=== PATIENT | female | born 2000 | race Caucasian/White ===

== ENCOUNTER 2023-06-04 11:56 | Outpatient (OUT) | payer OTHER, SELFPAY ==
[2023-06-04 12:58] LABS: Free T4 1.25 ng/dL (0.76-1.46)
[2023-06-04 13:02] LABS: Thyroid Stimulating Hormone 2.634 uIU/mL (0.358-3.740)
== END 2023-06-04 11:57 | disposition home or self-care (01) ==
LOC: LAB 11:59
PROVIDERS: PCP Family Medicine; Visit Provider Family Medicine
DX: E03.9 Hypothyroidism, unspecified (principal)
CPT/HCPCS: 36415; 84439; 84443

== ENCOUNTER 2024-05-23 10:28 | Outpatient (OUT) | payer OTHER, SELFPAY ==
[2024-05-23 11:58] LABS: Thyroid Stimulating Hormone 2.896 uIU/mL (0.358-3.740)
== END 2024-05-23 10:29 | disposition home or self-care (01) ==
LOC: LAB 10:29
PROVIDERS: PCP Family Medicine; Visit Provider Family Medicine
DX: E03.9 Hypothyroidism, unspecified (principal)
CPT/HCPCS: 36415; 84439; 84443

== ENCOUNTER 2025-05-29 09:04 | Outpatient (OUT) | payer OTHER, SELFPAY ==
--- OUTSIDE RECORDS SUMMARY | 2025-05-29 09:19 | XMS_ITS | CCD ---
Author Organization [facility] Care Team Providers Care Academic Success Coordinator Name Role Phone DR ELI RIGGINS Attending Unavailable RAHUL, DR ELI Yang Consulting Unavailable DR ELI RIGGINS Primary Care Unavailable DR ELI RIGGINS Admitting Unavailable Eli Riggins ELI RIGGINS Primary Care Unavailable SARANYA ALVARENGA Attending Unavailable SARANYA ALVARENGA Referring Unavailable SARANYA ALVARENGA MD, Marcia E Primary Care Provider Eli Riggins MD Attending Provider Allergies Allergy Classification Reported Allergen(s) Allergy Type Date of Onset Reaction(s) Facility (1 source) Albuterol; Translations: [ALBUTEROL] Drug Allergy 05-22-2024 [facility] Repository Medications Current Medications Medication Drug Class(es) Dates Sig (Normalized) Sig (Original) levothyroxine sodium 0.075 mg oral tablet (9 sources) l-Thyroxine Start: 02-21-2024 End: 06-21-2024 take 1 tablet by mouth in the morning Levothyroxine 75 mcg tablet Active 0 .ROUTE .COMPLEX June 21, 2024 10:46am TAKE 1 TABLET BY MOUTH IN THE MORNING ON AN EMPTY STOMACH Complies with drug therapy Start: 02-21-2024 take 1 tablet by sasha th in the morning Levothyroxine Active 0 .ROUTE .COMPLEX February 21, 2024 9:53pm TAKE 1 TABLET BY MOUTH IN THE MORNING ON AN EMPTY STOMACH Start: 02-21-2024 End: 02-21-2024 take 1 tablet by mouth once daily Levothyroxine 75 mcg tablet Discontinued 75 MCG PO Daily February 21, 2024 12:00am February 21, 2024 9:54pm Start: 07-23-2023 take 1 tablet by sasha th once daily in the morning Levothyroxine Sodium 75 MCG 1 tablet in the morning on an empty stomach Orally Once a day for 30 days Jul, Active Start: 09-09-2022 take 1 tablet by sasha th once daily Levothyroxine 75mcg levothyroxine 75mcg, 1 (one) Tablet daily # 30, 09/09/2022, Ref. x5. Active oral daily Aug, Active Problems Active Problems Problem Classification Problem Date Documented Date Episodic/Chronic Cardiac and circulatory congenital anomalies (8 sources) Ventricular septal defect; Translations: [Ventricular septal defect] Onset: 06-08-2024 Chronic Heart valve disorders (2 sources) Nonrheumatic mitral (valve) insufficiency; Translations: [Nonrheumatic mitral (valve) insufficiency] Onset: 06-08-2024 Chronic Other congenital anomalies (3 sources) Complete trisomy 21 syndrome; Translations: [Down syndrome, unspecified] Chronic Other congenital anomalies (3 sources) Down syndrome, unspecified; Translations: [Down syndrome, unspecified] Onset: 06-08-2024 Chronic Other congenital anomalies (1 source) Anomaly of chromosome pair 21; Translations: [Down syndrome, unspecified] 05-24-2024 Chronic Thyroid disorders (15 sources) Hypothyroidism, unspecified; Translations: [Hypothyroidism] Onset: 06-18-2022 Chronic Unclassified (2 sources) Atrioventricular septal defect, unspecified as to partial or complete; Translations: [Atrioventricular septal defect, unspecified as to partial or complete] Onset: 03-03-2018 Past or Other Problems Problem Classification Problem Date Documented Date Episodic/Chronic Cardiac dysrhythmias (2 sources) Bradycardia, unspecified; Translations: [Bradycardia, unspecified] Onset: 06-08-2024 Episodic Unclassified (1 source) Atrioventricular septal defect, unspecified as to partial or complete; Translations: [Atrioventricular septal defect, unspecified as to partial or complete] Onset: 06-08-2024 Results Test Name Value Interpretation Reference Range Facil ity Orders Onlyon 11-30-2024 Orders Only [id number] Simi Jurado 2000 F Date Provider Department Center 11/30/2024 [id number], CRYSTAL [facility] No family history on file Normal [facility] Orders Onlyon 06-20-2024 Orders Only [id number] Simi Jurado 2000 F Date Provider Department Center 06/20/2024 [id number] RP[facility] No family history on file Normal [facility] 37on 06-08-2024 37 S/P coarctation of t he aorta repair with mild flow acceleration across the descending aorta and normal descending aortic pulsatility without true evidence of coarctation. Mild flow acceleration across the left branch pulmonary artery in the absence of obvious stenosis pulmonary artery. Mild left-sided atrioventricular valve stenosis: mean diastolic gradient 3 mmHg Mild right-sided atrioventricular valve insufficiency ventricular systolic pressure between 30-35 mmHg. No tricuspid valve stenosis. Normal biventricular systolic function No significant changes seen on this echocardiogram compared to the previous study 3 different murmurs heard on exam and all are not very significant. Normal [facility] Office Visiton 06-08-2024 Follow-up visit [id number] Simi Jurado 2000 [facility] Department [place] 06/08/2024 EliasSARANYA MENDEZ [facility] No family history on file Level of Service:[id number] [place] OFFICE/OUTPATIENT ESTABLISHED MOD MDM 30 MIN Reason for Visit and Comments: AVSD [Other] Normal [facility] Orders Onlyon 06-08-2024 Orders Only [id number] Simi Jurado 2000 [facility] [place] 06/08/2024 [id number] LEMUS RP[facility] No family history on file Normal [facility] FREE T4on 06-18-2022 Free T4 [Mass/Vol] 1.13 ng/dL Normal 0.76-1.46 [facility] Comment on above: Performed By: #### FT4 #### [facility] [address], [place] [address] Dr. Sabrina Tovar TSHon 06-18-2022 TSH 3.050 uIU/mL Normal 0.358-3.740 [facility] Comment on above: Performed By: #### TSH #### [facility] [address], [place] [address] Dr. Sabrina Tovar Vital Signs Date Time Vital Sign Value Performing Clinician Facility 05-29-2025 08:49-0400 Diastolic blood pressure 86 mm[Hg] Eli Riggins MD Work Phone: [facility] 05-29-2025 08:49-0400 Heart rate 43 /min Eli Riggins MD Work Phone: [facility] 05-29-2025 08:49-0400 Systolic blood pressure 122 mm[Hg] Eli Riggins MD Work Phone: [facility] 05-29-2025 08:35-0400 Body height 140.97 cm Eli Riggins MD Work Phone: [facility] 05-29-2025 08:35-0400 Body mass index (BMI) [Ratio] 36.7 kg/m2 Eli Riggins MD Work Phone: [facility] 05-29-2025 08:35-0400 Body weight 73.02 kg Eli Riggins MD Work Phone: [facility] 05-23-2024 10:02-0400 Body height 142.24 cm [facility] 05-23-2024 10:02-0400 Body mass index (BMI) [Ratio] 35.4 kg/m2 [facility] 05-23-2024 10:02-0400 Body weight 71.66 kg [facility] 05-23-2024 10:02-0400 Diastolic blood pressure 72 mm[Hg] [facility] 05-23-2024 10:02-0400 Heart rate 46 /min [facility] 05-23-2024 10:02-0400 Systolic blood pressure 115 mm[Hg] [facility] 06-04-2023 11:30-0400 Body height 142.24 cm Eli Riggins Other [employer] [facility] Other 06-04-2023 11:30-0400 Body mass index (BMI) [Ratio] 34.07 kg/m2 Eli Riggins Other [employer] [facility] Other 06-04-2023 11:30-0400 Body weight 68.95 kg Eli Riggins Other [facility] Other 06-04-2023 11:30-0400 Diastolic blood pressure 71 mm[Hg] Eli Riggins Other [facility] Other 06-04-2023 11:30-0400 Systolic blood pressure 112 mm[Hg] Eli Riggins Other [facility] Other Encounters Encounter Date Encounter Type Care Provider Facility Start: 05-29-2025 End: 05-29-2025 ambulatory Eli Riggins MD Work Phone: [facility] Work Phone: Start: 05-29-2025 End: 05-29-2025 Patient encounter procedure Eli Riggins MD -[facility] Work Phone: Start: 06-19-2024 End: 06-19-2024 ambulatory ELI RIGGINS [facility] Start: 06-08-2024 End: 06-08-2024 ambulatory SARANYA [facility] Start: 05-24-2024 Patient encounter status Eli Riggins MD Work Phone: [facility] Start: 05-23-2024 End: 05-23-2024 ambulatory [facility] Work Phone: Start: 05-23-2024 End: 05-23-2024 Patient encounter procedure [facility] Work Phone: Start: 07-23-2023 End: 07-23-2023 ambulatory Eli Riggins Other [employer] [facility] Other Start: 07-23-2023 Telephone encounter Eli Riggins [facility] Start: 06-04-2023 End: 06-04-2023 ambulatory Eli Riggins Other [facility] Other Start: 06-04-2023 Encounter for genera l adult medical examination without abnormal findings Eli Riggins [facility] Start: 06-04-2023 Periodic preventive med est patient 18-39 yrs Eli Riggins [facility] Start: 06-04-2023 Telephone encounter Eli Riggins [facility] Start: 06-18-2022 End: 06-19-[address] ELI RIGGINS Facility:[facility]1 Plan of Treatment Date Care Activity Detail Author [facility] Immunizations Immunization Date Immunization Notes Care Provider Fa cility 01-14-2021 COVID-19 Vaccine Pfi zer - Documentation Purposes Only Eli Riggins Other [facility] 11-11-2020 meningococcal oligosaccharide (groups A, C, Y and W-135) diphtheria toxoid conjugate vaccine (MCV4O) Eli Riggins Other [facility] 04-17-2015 diphtheria, tetanus toxoids and acellular pertussis vaccine, unspecified formulation Eli Riggins Other [facility] Payers Date Payer Category Payer Medicaid [id number] 2. [id number] 2022 Unknown [id number] 2000 Unknown [id number] 1970 Unknown [id number] 1959 Unknown [id number] 1959 Unknown [id number] Unknown [id number] Social History Date Type Detail Facility Unknown if ever smoked [employer] [facility] Other Sex Assigned At Sex Assigned At Bir th [employer] [facility] [employer] Other Start: 2000 Sex Assigned At Female F [facility] Tobacco smoking status NHIS Unknown if ever smoked [facility] Work Phone: Sex Female (finding) [facility] Progress note 06-08-2024 Note Date & Type Note Facility 06-08-2024 Note Eli Riggins MD [address] [facility] [address] June 08, 2024 Patient: Simi Jurado Date of : 2000 Date of Visit: 06/08/2024 Dear Eli Riggins MD: I had the pleasure of seeing Simi Jurado, at our pediatric cardiology clinic on 06/08/2024 for Cardiac follow-up. Simi is a 24 y.o. 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 She was last seen by me a year ago and as you know has a history of coarctation repair as well as repair of atrioventricular septal defect. She is currently supplemented with Synthroid for hypothyroidism and the mother tells me that she recently had laboratory studies assessing her thyroid function but I cannot find any evidence of that in the medical record. She denies any alcohol use, smoking or vaping. Her parents tell me she has already seen endocrinology. Current Outpatient Medications Medication Sig Dispense Refill levothyroxine (Synthroid, Levoxyl) 75 mcg tablet Take 75 mcg by mouth in the morning. No current facility-administered medications for this visit. Allergies Allergen Reactions Albuterol Hives Review of Systems - Respiratory ROS, Gastrointestinal ROS, Genitourinary ROS, Hematologic, Endocrinologic ROS, Musculoskeletal, Immunologic, Infectious ROS, Neurologic ROS are unremarkable. On physical exam the patient was alert, cooperative, acyanotic and in no apparent distress. Vitals: 06/08/24 0937 Weight: 71.3 kg (157 lb 3 oz) Height: 1.43 m (4' 8.3 ) Right arm blood pressure was 114/60 mmHg with a left lower extremity blood pressure of 125/77 mmHg with simultaneous heart rates that were 41 and 42 bpm respectively. Pulse oximetry was 98% on room air. Weight had gone up from 140 to 157 pounds since our last evaluation 1 year ago. HEENT was remarkable for facial features consistent with Down syndrome. Lungs were clear to auscultation. Neck exam demonstrated no JVD or LUZ MARINA. Chest was normal active without thrill. There was a regular rate and rhythm with a normal S1 and wide split S2. There was a soft low-frequency systolic ejection murmur at the left infraclavicular area which was also heard at the left back. There was also a soft higher pitch systolic murmur with a easily audible short diastolic component at the left lower parasternal border. Abdominal exam was remarkable for her being more overweight but she had a soft abdomen with no liver or spleenenlargement.with no hepatosplenomegaly. Peripheral extremities demonstrated symmetrical pulses and pulse pressure without BF delay. There was an abnormal left upper extremity from her previous band deformity. No clubbing, cyanosis, or edema was seen with normal capillary refill. Skin & joint exam was normal. EKG demonstrated: Sinus bradycardia was seen with a heart rate of 43 bpm and an abnormal superior QRS vector. There was postsurgical right bundle branch block with a QRS duration of 128 ms. Some nonspecific T wave abnormalities were seen in the V4 and V5 precordial lead as well as T wave flattening in aVL. 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 Her blood pressures are normal tensive and she is not complaining of any cardiac related symptoms. Her physical examination is characteristic of left-sided or right-sided atrioventricular valve regurgitation with a soft diastolic murmur which is likely related to mitral stenosis. The latter is quite soft. She does have some flow acceleration across the aortic arch but this is not significant. I am pleased that overall she looks quite good but she has gained a significant amount of weight over the past year despite having her thyroid supplemented and reassessed. We talked about staying active with her and watching her caloric intake and making sure that her thyroid levels are clearly where they need to be. She does not require SBE prophylaxis but we have recommended her echocardiogram to be performed as an outpatient and I will keep you advised of those results. Her bradycardia is sinus bradycardia and she did have some postoperative pacing issues when she was small. She has not shown us any evidence of complete atrioventricular block so the biggest issue would be sick sinus syndrome. I am planning on doing a 48-hour Holter monitor today and we will keep you advised of those results but we will follow-up in 1 year. Obviously if she starts to become more fatigued or she has a Holter monitor that shows severe sinus bradycardia, this could be an indication for pacemaker implantation. For now however I have not limited her in any way and we will see her back in 1 year. Should you have any further questions or suggestions, please d (more content not included)... [facility] Evaluation note 07-23-2023 Note Date & Type Note Facility 07-23-2023 Evaluation note Encounter Date Diagnosis Assessment Notes Jul, Hypothyroidism (ICD-10 - E03.9) [facility] Other Evaluation note 06-04-2023 Note Date & Type Note Facility 06-04-2023 Evaluation note Encounter Date Diagnosis Assessment Notes May, Hypothyroidism (ICD-10 - E03.9) Chronic condition, due for labs. May, Well adult exam (ICD-10 - Z00.00) We have discussed the necessity of following up with PCP regularly as well as specialists, as needed. Discussed F/U with dentistry and optometry at least yearly. Discussed all preventative measures/ cancer screenings as applicable to this patient. Emphasized the importance of a reduced fat, low carb diet to promote heart health and controlled blood sugars. Reviewed social history and ensured patient is safe within the home today. Pt denies any abuse of alcohol, nicotine, caffeine or recreational drugs. I have ensured patient is of stable mental and physical health today. We have discussed appropriate F/U schedule as well as blood work and vaccinations that apply. All questions answered and patient is sent home pleased, without concerns. May, Down syndrome (ICD-10 - Q90.9) Completed guardianship paperwork, scanned into chart and copy given to mother. [facility] Other Evaluation note Note Date & Type Note Facility Evaluation note No Information [employer] Other Evaluation note Note Date & Type Note Facility Evaluation note Diagnosis Onset Date Hypothyroidism acute [facility] Work Phone: Evaluation note Note Date & Type Note Facility Evaluation note Diagnosis Onset Date Resolution Hypothyroidism acute May 29, 2025 8:04am [facility] Work Phone: History general Narrative - Reported Note Date & Type Note Facility History general Narrative - Reported Type Medical History VSD (ventricular septal defect) Medical History Down syndrome Medical History Hypothyroidism Medical History Hypoplastic L arm Surgical History ATRIAL / VENTRICULAR SEPTAL DEFECT / MILD L SIDED HYPOLASIA Surgical History DENTAL CARIES UNDER ANESTHSIA Hospitalization History SEE SURGICAL HX [facility] Other Reason for referral (narrative) Note Date & Type Note Facility Reason for referral (narrative) No reason for referral information available [facility] Work Phone: Summary Purpose Family History Relationship Condition Age at Onset Recorded Date/T sandor brother Asthma Unknown father Hypertension Unknown Family history of thyroid disease Unknown Advance Directives Advance Directive Response Recorded Date/ Time Advance Directives No May 9:55am Chief Complaint and Reason for Visit Chief Complaint guardianship paperwo rk Reason for Visit Hypothyroidism Chief Complaint Admit Date Wellness/Guardianship Paperwork Septembe r 2024 8:04am Reason for Visit Admit Date Hypothyroidism May 29, 2025 8:04am Additional Source Comments INFORMATION SOURCE (unrecogn ized section and content) DATE CREATED AUTHOR 10/12/2022 [facility] DATE CREATED AUTHOR AUTHOR'S ORGANIZ ATION 06/20/2024 [facility] DATE CREATED AUTHOR AUTHOR'S ORGANIZ ATION 12/04/2024 [facility] REASON FOR VISIT (unrecogniz ed section and content) [email or web address] Care Teams (unrecognized sec tion and content) Team Status: Active Member Role Status Dates Eli Riggins MD Primary Care Provider Active Team Status: Inactive Member Role Status Dates Eli Riggins MD Primary Care Provide r, Attending Provider Active Start: May 23, 2024 End: May 23, 2024 Team Status: Inactive Member Role Status Dates Eli Riggins MD Primary Care Provider Active Start: May 29, 2025 End: May 29, 2025 Eli Riggins MD Attending Provider Active St art: May 29, 2025 End: May 29, 2025 Goals (unrecognized section and content) Goals may be documented in a n alternate section FOR RECORDS PERTAINING TO PATIENTS WHO ARE OR HAVE BEEN ENROLLED IN A CHEMICAL DEPENDENCY/SUBSTANCEABUSE PROGRAM, SOME INFORMATION MAY BE OMITTED. This clinical summary was aggregated from multiple sources. Caution should be exercised in using it in the provision of clinical care. This summary normalizes information from multiple sources, and as a consequence, information in this document may materially change the coding, format and clinical context of patient data. In addition, data may be omitted in some cases. CLINICAL DECISIONS SHOULD BE BASED ON THE PRIMARY CLINICAL RECORDS. [facility] [employer] [facility]. provides no warranty or guarantee of the accuracy or completeness of information in this document.
[2025-05-29 10:09] LABS: Thyroid Stimulating Hormone 5.238 uIU/mL (0.358-3.740)
== END 2025-05-29 09:05 | disposition home or self-care (01) ==
LOC: LAB 09:05
PROVIDERS: PCP Family Medicine; Visit Provider Family Medicine
DX: E03.1 Congenital hypothyroidism without goiter (principal)
CPT/HCPCS: 36415; 84439; 84443